=== PATIENT | male | born 1985 | race Caucasian/White ===

== ENCOUNTER 2017-11-30 14:22 | Emergency (ER) | payer BC ==
[2017-11-30] MEDS ORDERED: Sodium Chloride 0.9% 10 ML Syringe FLUSH PRN (17:00)
[2017-11-30] MEDS ORDERED: Sodium Chloride 0.9% 1,000 ML IV ONE (17:01)
[2017-11-30] MEDS ORDERED: Acetaminophen 325 MG Tab PO ONE (17:02)
[2017-11-30 17:43] LABS: CHLORIDE,CL 95 mmol/L (101-111); SODIUM,NA 131 mmol/L (135-145)
--- NOTE | 2017-12-01 08:01 | EDM.PDOC ---
Scribed by Jojo Banda 11/30/17 [id number] for Marisa Polo NP ED HPI GENERAL MEDICAL PROBLEM - General Chief Complaint: Fever Stated Complaint: [id number] FLU Time Seen by Provider: 11/30/17 16:55 Source of Information: Reports: Patient, RN, RN Notes Reviewed History Limitations: Reports: No Limitations - History of Present Illness INITIAL COMMENTS - FREE TEXT/NARRATIVE: Patient presents to ER with complaint of fever, chills and decreased appetite for the past week. Patient admits to pain to neck, head and spine. Increased sleepiness. States temperature ranges from 102.5 to 104. He takes Advil for headache and fever which helps. He has had mosquito bites. He has had no rash, nausea, vomiting, diarrhea, tick bites, cough or runny nose. Onset: Gradual Duration: Getting Worse Location: Reports: Generalized Quality: Reports: Ache Severity: Moderate Improves with: Reports: None Worsens with: Reports: None Associated Symptoms: Reports: No Other Symptoms Generalized Pain Score (Numeric/FACES): 4 - Related Data Allergies Allergy/AdvReac Type Severity Reaction Status Date / Time minocycline Allergy Cannot Verified 11/30/17 16:27 Remember Penicillins Allergy Cannot Verified 11/30/17 16:27 Remember Home Meds: Home Meds . [No Known Home Meds] 11/30/17 [History] Past Medical History - Past Health History Medical/Surgical History: Denies Medical/Surgical History Social & Family History - Tobacco Use Smoking Status *Q: Never Smoker - Alcohol Use Days Per Week of Alcohol Use: 3 Number of Drinks Per Day: 10 Total Drinks Per Week: 30 - Recreational Drug Use Recreational Drug Use: No ED ROS ENT - Review of Systems Review Of Systems: ROS reveals no pertinent complaints other than HPI. ED EXAM, ENT - Physical Exam Exam: See Below Exam Limited By: No Limitations General Appearance: Alert, WD/WN, No Apparent Distress Eye Exam: Bilateral Eye: Normal Inspection Ears: Normal External Exam, Normal Canal, Hearing Grossly Normal, Normal TMs Nose: Normal Inspection, Normal Mucousa, No Blood Mouth/Throat: Normal Inspection, Normal Gums, Normal Lips, Normal Oropharynx, Normal Teeth Head: Atraumatic, Normocephalic Neck: Other (no nuchal rigidity) Respiratory/Chest: No Respiratory Distress, Lungs Clear, Normal Breath Sounds, No Accessory Muscle Use, Chest Non-Tender Cardiovascular: Normal Peripheral Pulses, Regular Rate, Rhythm, No Edema, No Gallop, No JVD, No Murmur, No Rub GI/Abdominal: Normal Bowel Sounds, Soft, Non-Tender, No Organomegaly, No Distention, No Abnormal Bruit, No Mass (Male) Exam: Deferred Rectal (Males) Exam: Deferred Back: Normal Inspection, Full Range of Motion Extremities: Normal Inspection, Normal Range of Motion, Non-Tender, No Pedal Edema, Normal Capillary Refill Neurological: Alert, Oriented, CN II-XII Intact, Normal Cognition, Normal Gait, Normal Reflexes, No Motor/Sensory Deficits Psychiatric: Normal Affect, Normal Mood Skin: Warm, Dry, Intact, Normal Color, No Rash Lymphatic: Other (+2 anterior cervical) Course - Vital Signs Last Recorded V/S: Last Vital Signs Temp 100.6 F 11/30/17 18:00 Pulse 76 11/30/17 18:00 Resp 16 11/30/17 18:00 BP 127/70 11/30/17 18:00 Pulse Ox 98 11/30/17 18:00 - Orders/Labs/Meds Orders: Active Orders 24 hr Category Date Time Status Peripheral IV Care [RC] . DIRECTED Care 11/30/17 17:01 Active CULTURE BLOOD [BC] Stat Lab 11/30/17 17:14 Received CULTURE BLOOD [BC] Stat Lab 11/30/17 17:18 Received CULTURE STREP A CONFIRMATION [RM] Stat Lab 11/30/17 16:24 Results LYME, TOTAL AB TEST/REFLEX [REF] Urgent Lab 11/30/17 17:14 Received STREP SCRN A RAPID W CULT CONF [RM] Stat Lab 11/30/17 16:24 Results UA W/MICROSCOPIC [URIN] Stat Lab 11/30/17 17:00 Ordered WEST NILE VIRUS IGM [REF] Stat Lab 11/30/17 17:14 Received Sodium Chloride 0.9% [Saline Flush] Med 11/30/17 17:00 Active 10 ml FLUSH ASDIRECTED PRN Blood Culture x2 Reflex Set [OM.PC] Stat Oth 11/30/17 17:00 Ordered Peripheral IV Insertion Adult [OM.PC] Stat Oth 11/30/17 17:00 Ordered Medication Orders Sodium Chloride (Saline Flush) 10 ml FLUSH ASDIRECTED PRN PRN Reason: Keep Vein Open Last Admin: 11/30/17 17:10 Dose: 10 ml Labs: Laboratory Tests 11/30/17 11/30/17 11/30/17 Range/Units 17:00 17:14 17:14 WBC 9.6 (5.0-10.0) 10^3/uL RBC 4.65 (4.6-6.2) 10^6/uL Hgb 14.4 (14.0-18.0) g/dL Hct 42.8 (40.0-54.0) % MCV 92.0 (80-100) fL MCH 31.0 (27.0-34.0) pg MCHC 33.6 (33.0-35.0) g/dL Plt Count 239 (150-450) 10^3/uL Neut % (Auto) 66.9 (42.2-75.2) % Lymph % (Auto) 17.6 L (20.5-50.1) % Coles % (Auto) 13.8 H (2-8) % Eos % (Auto) 1.4 (1.0-3.0) % Baso % (Auto) 0.3 (0.0-1.0) % Sodium 131 L (135-145) mmol/L Potassium 3.8 (3.6-5.0) mmol/L Chloride 95 L (101-111) mmol/L Carbon Dioxide 24.0 (21.0-31.0) mmol/L Anion Gap 15.8 BUN 10 (7-18) mg/dL Creatinine 1.2 (0.6-1.3) mg/dL Est Cr Clr Drug Dosing 98.80 mL/min Estimated GFR (MDRD) > 60 BUN/Creatinine Ratio 8.33 Glucose 101 (74-105) mg/dL Lactic Acid (0.5-2.2) mmol/L Calcium 9.3 (8.4-10.2) mg/dl Total Bilirubin 1.0 (0.2-1.0) mg/dL AST 64 H (10-42) IU/L ALT 41 (10-60) IU/L Alkaline Phosphatase 92 (42-121) IU/L Total Protein 8.8 H (6.7-8.2) g/dl Albumin 4.6 (3.2-5.5) g/dl Globulin 4.2 Albumin/Globulin Ratio 1.10 Urine Color Yellow (YELLOW) Urine Appearance Clear (CLEAR) Urine pH 7.5 (5.0-9.0) Ur Specific Jefferson 1.015 (1.005-1.030) Urine Protein 100 H (NEGATIVE) Urine Glucose (UA) Negative (NEGATIVE) Urine Ketones Negative (NEGATIVE) Urine Occult Blood Negative (NEGATIVE) Urine Nitrite Negative (NEGATIVE) Urine Bilirubin Negative (NEGATIVE) Urine Urobilinogen >=8.0 H (0.2-1.0) mg/dL Ur Leukocyte Esterase Negative (NEGATIVE) Urine RBC 0-5 /HPF Urine WBC 0-5 (0-5/HPF) /HPF Ur Epithelial Cells Rare /HPF Urine Bacteria Rare (0-FEW/HPF) /HPF 11/30/17 Range/Units 17:14 WBC (5.0-10.0) 10^3/uL RBC (4.6-6.2) 10^6/uL Hgb (14.0-18.0) g/dL Hct (40.0-54.0) % MCV (80-100) fL MCH (27.0-34.0) pg MCHC (33.0-35.0) g/dL Plt Count (150-450) 10^3/uL Neut % (Auto) (42.2-75.2) % Lymph % (Auto) (20.5-50.1) % Coles % (Auto) (2-8) % Eos % (Auto) (1.0-3.0) % Baso % (Auto) (0.0-1.0) % Sodium (135-145) mmol/L Potassium (3.6-5.0) mmol/L Chloride (101-111) mmol/L Carbon Dioxide (21.0-31.0) mmol/L Anion Gap BUN (7-18) mg/dL Creatinine (0.6-1.3) mg/dL Est Cr Clr Drug Dosing mL/min Estimated GFR (MDRD) BUN/Creatinine Ratio Glucose (74-105) mg/dL Lactic Acid 0.9 (0.5-2.2) mmol/L Calcium (8.4-10.2) mg/dl Total Bilirubin (0.2-1.0) mg/dL AST (10-42) IU/L ALT (10-60) IU/L Alkaline Phosphatase (42-121) IU/L Total Protein (6.7-8.2) g/dl Albumin (3.2-5.5) g/dl Globulin Albumin/Globulin Ratio Urine Color (YELLOW) Urine Appearance (CLEAR) Urine pH (5.0-9.0) Ur Specific Jefferson (1.005-1.030) Urine Protein (NEGATIVE) Urine Glucose (UA) (NEGATIVE) Urine Ketones (NEGATIVE) Urine Occult Blood (NEGATIVE) Urine Nitrite (NEGATIVE) Urine Bilirubin (NEGATIVE) Urine Urobilinogen (0.2-1.0) mg/dL Ur Leukocyte Esterase (NEGATIVE) Urine RBC /HPF Urine WBC (0-5/HPF) /HPF Ur Epithelial Cells /HPF Urine Bacteria (0-FEW/HPF) /HPF Rapid strep: negative. Influenza A: Negative. Influenza B: Negative. Meds: Medications Generic Name Dose Route Start Last Admin Trade Name Freq PRN Reason Stop Dose Admin Sodium Chloride 10 ml 11/30/17 17:00 11/30/17 17:10 Saline Flush FLUSH 10 ml ASDIRECTED PRN Administration Keep Vein Open Discontinued Medications Generic Name Dose Route Start Last Admin Trade Name Freq PRN Reason Stop Dose Admin Acetaminophen 650 mg 11/30/17 17:02 11/30/17 17:10 Tylenol PO 11/30/17 17:03 650 mg NOW ONE Administration Sodium Chloride 1,000 mls @ 999 mls/hr 11/30/17 17:01 11/30/17 17:10 Normal Saline IV 11/30/17 18:01 999 mls/hr .BOLUS ONE Administration Departure - Departure Time of Disposition: 18:37 Disposition: Home, Self-Care 01 Condition: Fair Clinical Impression: Viral illness Fever Qualifiers: Fever type: unspecified Qualified Code(s): R50.9 - Fever, unspecified - Discharge Information Instructions: Viral Illness, Adult, Fever, Adult, [id number], West Nile Virus Forms: ED Department Discharge Additional Instructions: Continue to use Tylenol and/or ibuprofen as directed for fever/pain Drink plenty of fluids Stay home and rest until fever free for 24 hours Follow up with your primary care facility next week - My Orders Last 24 Hours: My Active Orders 11/30/17 16:24 CULTURE STREP A CONFIRMATION [RM] Stat STREP SCRN A RAPID W CULT CONF [RM] Stat 11/30/17 17:00 UA W/MICROSCOPIC [URIN] Stat Sodium Chloride 0.9% [Saline Flush] 10 ml FLUSH ASDIRECTED PRN Blood Culture x2 Reflex Set [OM.PC] Stat Peripheral IV Insertion Adult [OM.PC] Stat 11/30/17 17:01 Peripheral IV Care [RC] . DIRECTED 11/30/17 17:14 CULTURE BLOOD [BC] Stat LYME, TOTAL AB TEST/REFLEX [REF] Urgent WEST NILE VIRUS IGM [REF] Stat 11/30/17 17:18 CULTURE BLOOD [BC] Stat - Assessment/Plan Last 24 Hours: My Active Orders 11/30/17 16:24 CULTURE STREP A CONFIRMATION [RM] Stat STREP SCRN A RAPID W CULT CONF [RM] Stat 11/30/17 17:00 UA W/MICROSCOPIC [URIN] Stat Sodium Chloride 0.9% [Saline Flush] 10 ml FLUSH ASDIRECTED PRN Blood Culture x2 Reflex Set [OM.PC] Stat Peripheral IV Insertion Adult [OM.PC] Stat 11/30/17 17:01 Peripheral IV Care [RC] . DIRECTED 11/30/17 17:14 CULTURE BLOOD [BC] Stat LYME, TOTAL AB TEST/REFLEX [REF] Urgent WEST NILE VIRUS IGM [REF] Stat 11/30/17 17:18 CULTURE BLOOD [BC] Stat I have read and agree with the documentation that has been completed regarding this visit. By signing this record, I attest that the documentation was completed in my physical presence and is an accurate record of the encounter.
== END 2017-11-30 18:51 | disposition home or self-care (01) ==
LOC: DL.ED 14:22
DX: B34.9 Viral infection, unspecified (principal); Z88.1 Allergy status to other antibiotic agents; Z88.0 Allergy status to penicillin
CPT/HCPCS: 36415; 80053; 81001; 83605; 85025; 86618; 86788; 87040; 87081; 87430; 87804; 96360; 99284; A9270; J7030; J7050

== ENCOUNTER 2021-05-25 14:44 | Inpatient (IN) | payer BC ==
[2021-05-25] MEDS ORDERED: Iopamidol 755 Mg/ML 100 ML Bottle IVPUSH ONE (15:18)
--- NOTE | 2021-05-25 15:22 | EDM.PDOC ---
ED HPI GENERAL MEDICAL PROBLEM - General Chief Complaint: General Stated Complaint: SENT FROM DR WEBER Time Seen by Provider: 05/25/21 15:20 Source of Information: Reports: Patient, Provider (MAGO Vences from [facility]), RN, RN Notes Reviewed History Limitations: Reports: No Limitations - History of Present Illness INITIAL COMMENTS - FREE TEXT/NARRATIVE: Christian is a 35 y/o male who presents to the ED via personal vehicle at the request of his PCP from [facility] for persistent chest pain and shortness of breath. Per his provider, the patient has a COVID-19 infection three weeks ago. He was evaluated in clinic two days ago for persistent upper respiratory symptoms and was subsequently started on Omnicef for a suspected sinus infection. He presented again to the clinic today for shortness of breath and chest pain; while his CXR was found to have multifocal infiltrates his d-dimer was noted to be 3600. His PCP has requested we obtain a CT chest for r/o PE. Right Middle Back Pain Score (Numeric/FACES): 2 - Related Data Allergies Allergy/AdvReac Type Severity Reaction Status Date / Time minocycline Allergy Cannot Verified 11/30/17 16:27 Remember Penicillins Allergy Cannot Verified 11/30/17 16:27 Remember Home Meds: Home Meds Mv-Min/Vit C/Glut/Lysine/Hc124 [Airborne Tablet Chewable] 1 each PO DAILY 05/25/21 [History] Apixaban [Eliquis] 10 mg PO BID #60 tablet 05/27/21 [Rx] Past Medical History - Past Health History Medical/Surgical History: Denies Medical/Surgical History ED ROS GENERAL - Review of Systems Review Of Systems: Comprehensive ROS is negative, except as noted in HPI. ED EXAM, GENERAL - Physical Exam Exam: See Below Exam Limited By: No Limitations General Appearance: Alert, No Apparent Distress Eye Exam: Bilateral Eye: EOMI, Normal Inspection, PERRL (3mm) Ears: Normal External Exam, Normal Canal, Hearing Grossly Normal, Normal TMs Nose: Normal Inspection, Normal Mucosa, No Blood Throat/Mouth: Normal Inspection, Normal Oropharynx, Normal Voice, No Airway Compromise Head: Atraumatic, Normocephalic Neck: Normal Inspection, Supple, Non-Tender, Full Range of Motion. No: Lymphadenopathy (L), Lymphadenopathy (R) Respiratory/Chest: No: Chest Non-Tender (To right lateral ribs with i nspiration), Crackles, Rales, Rhonchi, Wheezing, Stridor, Pleural Rub Cardiovascular: Normal Peripheral Pulses, Regular Rate, Rhythm, No Edema, No Gallop, No JVD, No Murmur, No Rub Peripheral Pulses: 2+: Radial (L), Radial (R) GI/Abdominal: Normal Bowel Sounds, Soft, Non-Tender, No Distention, No Abnormal Bruit, No Mass, Pelvis Stable (Male) Exam: Deferred Rectal (Males) Exam: Deferred Back Exam: Normal Inspection, Full Range of Motion Extremities: Normal Inspection, Normal Range of Motion, Normal Capillary Refill Neurological: Alert, Oriented, CN II-XII Intact, Normal Cognition, Normal Gait, No Motor/Sensory Deficits Psychiatric: Normal Affect, Normal Mood Skin Exam: Warm, Dry, Intact, Normal Color, No Rash. No: Cyanosis, Jaundice, Mottled, Pallor Course - Vital Signs Last Recorded V/S: Last Vital Signs Temp 97.8 F 05/27/21 08:14 Pulse 86 05/27/21 08:14 Resp 20 05/27/21 08:14 BP 111/61 05/27/21 08:14 Pulse Ox 95 05/27/21 08:14 - Orders/Labs/Meds Meds: Medications Discontinued Medications Generic Name Dose Route Start Last Admin Trade Name Audiq PRN Reason Stop Dose Admin Acetaminophen 650 mg 05/25/21 17:23 Acetaminophen 325 Mg Tab PO Q4H PRN Pain (Mild 1-3)/fever Apixaban 10 mg 05/26/21 09:30 05/27/21 09:16 Apixaban 5 Mg Tab PO 10 mg BID JEAN-PIERRE Administration Heparin Sodium (Porcine) 5,000 units 05/25/21 17:17 05/25/21 17:48 Heparin Sodium 5,000 Units/Ml Vial IVPUSH 05/25/21 17:18 5,000 units ONETIME ONE Administration Heparin Sodium (Porcine) 2,500 units 05/26/21 00:12 05/26/21 00:28 Heparin Sodium 5,000 Units/Ml Vial IVPUSH 05/26/21 00:13 2,500 units .BOLUS ONE Administration Heparin Sodium/Sodium Chloride 25,000 units in 500 mls @ 26 mls/hr 05/25/21 17:30 05/26/21 00:30 Heparin 25,000 Units In 1/2 Ns 500 Ml IV 1,685 units/hr TITRATE JEAN-PIERRE 33.7 mls/hr Titration Protocol 1,300 UNITS/HR Iopamidol 100 ml 05/25/21 15:18 05/25/21 15:29 Iopamidol 755 Mg/Ml 100 Ml Bottle IVPUSH 05/25/21 15:19 80 ml ONETIME ONE Administration Levofloxacin 500 mg 05/25/21 17:30 05/26/21 17:25 Levofloxacin 500 Mg Tab PO 500 mg Q24H JEAN-PIERRE Administration Morphine Sulfate 2 mg 05/25/21 17:23 Morphine 2 Mg/Ml Syringe IVPUSH Q2H PRN Pain (severe 7-10) Non-Formulary Medication 1 each 05/26/21 09:00 Mv-Min/Vit C/Glut/Lysine/Hc124 [Airborne Tablet Chewable] PO DAILY JEAN-PIERRE Ondansetron HCl 4 mg 05/25/21 17:23 Ondansetron 4 Mg/2 Ml Sdv IVPUSH Q4H PRN Nausea/Vomiting Ondansetron HCl 4 mg 05/25/21 17:23 Ondansetron 4 Mg Tab.Dis PO Q4H PRN nausea, able to take PO Oxycodone HCl 5 mg 05/25/21 17:23 Oxycodone 5 Mg Tab PO Q4H PRN Pain (moderate 4-6) Sodium Chloride 10 ml 05/25/21 21:04 05/26/21 21:53 Sodium Chloride 0.9% 10 Ml Syringe FLUSH 10 ml ASDIRECTED PRN Administration Keep Vein Open Temazepam 15 mg 05/25/21 17:23 05/26/21 23:33 Temazepam 15 Mg Cap PO 15 mg BEDTIME PRN Administration Sleep - Radiology Interpretation Free Text/Narrative:: [facility] Final Radiology Report Call: [phone] assistance Online chat: [email or web address] Name: CHRISTIAN PINEDO Age: 35Years M Date: 05/25/2021 SSN: -- : [id number] Study: CT CHEST W CONT Requesting Physician: Xi Gilmore Images: [id number] Addl Studies: Provided Clinical History: r/o pulmonary embolism; D-dimer 3600 Contrast: With Contrast Medium: isovue 370 Contrast Amount: 80 mL Contrast Method: Intravenous (IV) Page 1 of 2 PROCEDURE INFORMATION: Exam: CT Chest With Contrast; Diagnostic Exam date and time: 05/25/2021 3:21 PM Age: 35 years old Clinical indication: Shortness of breath; Additional info: R/O pulmonary embolism; D-dimer 3600 TECHNIQUE: Imaging protocol: Diagnostic computed tomography of the chest with contrast. Radiation optimization: All CT scans at this facility use at least one of these dose optimization techniques: automated exposure control; mA and/or kV adjustment per patient size (includes targeted exams where dose is matched to clinical indication); or iterative reconstruction. Contrast material: ISOVUE 370; Contrast volume: 80 ml; Contrast route: INTRAVENOUS (IV); COMPARISON: No relevant prior studies available. FINDINGS: Lungs: Bilateral airspace disease, suspicious for pneumonia. There are multifocal areas of the mostly dense, consolidative airspace disease seen, involving all 5 lobes, with an overall upper lung predominance. Many of these are peripherally located and some have round configurations These are commonly reported imaging features of COVID-19 pneumonia. Pleural spaces: No pneumothorax or pleural effusions. Heart: The RV/LV ratio is abnormally elevated, suggestive of right heart strain. No significant pericardial effusion. Pulmonary arteries: Filling defects within the right lower lobe pulmonary artery, extending into multiple segmental and subsegmental branches, compatible with pulmonary emboli. No evidence of clot in the large/central pulmonary arteries. Aorta: No acute abnormality. No evidence of aortic dissection. Lymph nodes: Multiple small lymph nodes in the mediastinum and hilar regions bilaterally, none appearing pathologically enlarged. These are most likely reactive, and not of clinical significance. No evidence of diffuse pathologic lymphadenopathy. Bones/joints: No acute bony abnormality. Soft tissues: No acute abnormality. IMPRESSION: 1. Pulmonary emboli involving the right lower lobe pulmonary artery. 2. Findings suggestive of associated right heart strain. 3. Bilateral airspace disease, suspicious for pneumonia. Commonly reported imaging features of COVID-19 pneumonia are present. Other processes such as influenza pneumonia and organizing pneumonia, can cause a similar imaging pattern. (Reference: Genaro) 4. See above for remaining findings. REFERENCES: Genaro Gilliland, et al., Radiological Society of [place] Expert Consensus Statement on Reporting Chest CT Findings Related to COVID-19. Endorsed by the Society of Thoracic Radiology, the [place] [employer], and RSNA. Published September 02, 2019. Thank you for allowing us to participate in the care of your patient. Dictated and Authenticated by: Shani Cruz MD 05/25/2021 3:52 PM Central Time ([place] & [place]) - Re-Assessments/Exams Free Text/Narrative Re-Assessment/Exam: 05/25/21 CT chest w/ obtained to r/o PE Labs from [facility] reviewed by advertising writer. Case discussed with Dr. Peralta who kindly accepted patient for admission to this facility. Findings of examination, lab work, and imaging reviewed with patient. Will start heparin bolus and gtt. Patient verbalized understanding and agreement with the plan of care. Departure - Departure Time of Disposition: 16:15 Disposition: Admitted As Inpatient 68 Clinical Impression: Pulmonary embolism Qualifiers: Pulmonary embolism type: single subsegmental (without acute cor pulmonale) Qualified Code(s): I26.93 - Single subsegmental pulmonary embolism without acute cor pulmonale - Discharge Information
--- NOTE | 2021-05-25 15:52 | CT ---
PROCEDURE INFORMATION: Exam: CT Chest With Contrast; Diagnostic Exam date and time: 05/25/2021 3:21 PM Age: 35 years old Clinical indication: Shortness of breath; Additional info: R/O pulmonary embolism; D-dimer 3600 TECHNIQUE: Imaging protocol: Diagnostic computed tomography of the chest with contrast. Radiation optimization: All CT scans at this facility use at least one of these dose optimization techniques: automated exposure control; mA and/or kV adjustment per patient size (includes targeted exams where dose is matched to clinical indication); or iterative reconstruction. Contrast material: ISOVUE 370; Contrast volume: 80 ml; Contrast route: INTRAVENOUS (IV); COMPARISON: No relevant prior studies available. FINDINGS: Lungs: Bilateral airspace disease, suspicious for pneumonia. There are multifocal areas of the mostly dense, consolidative airspace disease seen, involving all 5 lobes, with an overall upper lung predominance. Many of these are peripherally located and some have round configurations These are commonly reported imaging features of COVID-19 pneumonia. Pleural spaces: No pneumothorax or pleural effusions. Heart: The RV/LV ratio is abnormally elevated, suggestive of right heart strain. No significant pericardial effusion. Pulmonary arteries: Filling defects within the right lower lobe pulmonary artery, extending into multiple segmental and subsegmental branches, compatible with pulmonary emboli. No evidence of clot in the large/central pulmonary arteries. Aorta: No acute abnormality. No evidence of aortic dissection. Lymph nodes: Multiple small lymph nodes in the mediastinum and hilar regions bilaterally, none appearing pathologically enlarged. These are most likely reactive, and not of clinical significance. No evidence of diffuse pathologic lymphadenopathy. Bones/joints: No acute bony abnormality. Soft tissues: No acute abnormality. IMPRESSION: 1. Pulmonary emboli involving the right lower lobe pulmonary artery. 2. Findings suggestive of associated right heart strain. 3. Bilateral airspace disease, suspicious for pneumonia. Commonly reported imaging features of COVID-19 pneumonia are present. Other processes such as influenza pneumonia and organizing pneumonia, can cause a similar imaging pattern. (Reference: Genaro) 4. See above for remaining findings. REFERENCES: Genaro Gilliland et al., Radiological Society of [place] Expert Consensus Statement on Reporting Chest CT Findings Related to COVID-19. Endorsed by the Society of Thoracic Radiology, the [place] [employer], and RSNA. Published September 02, 2019.
[2021-05-25] MEDS ORDERED: Heparin Sodium 5,000 Units/ML Vial IVPUSH ONE (17:17)
[2021-05-25] MEDS ORDERED: Ondansetron 4 MG/2 ML SDV IVPUSH PRN (17:23)
[2021-05-25] MEDS ORDERED: Morphine 2 MG/ML SYRINGE IVPUSH PRN (17:23)
[2021-05-25] MEDS ORDERED: Acetaminophen 325 MG Tab PO PRN (17:23)
[2021-05-25] MEDS ORDERED: oxyCODONE 5 MG Tab PO PRN (17:23)
[2021-05-25] MEDS ORDERED: Ondansetron 4 MG Tab.DIS PO PRN (17:23)
[2021-05-25] MEDS ORDERED: Heparin Sodium/0.45% NaCl 25,000 UNITS/500 ML BAG IV SCH (17:30)
[2021-05-25 17:31] LABS: PTT,PARTIAL THROMBOPLSTIN TIME 22.1 SEC (22.0-34.0)
--- NOTE | 2021-05-25 17:31 | PCM.HP ---
H&P History of Present Illness - General Date of Service: 05/25/21 Admit Problem/Dx: Admission Diagnosis/Problem Admission Diagnosis/Problem Pulmonary embolism Source of Information: Patient, Provider (ER) - History of Present Illness Initial Comments - Free Text/Narative: 35 yo with no chronic medical problems no family h/o blood clots not vaccinated against covid 19 had covid 19 pneumonia about 3 weeks prior to presentation with symptoms of cough, fever, loss of taste symptoms improved after 8 days non specific treatment was provided later was c/o stuffy nose and treated for URTI, sinusitis with cefdir noted significant sob with walking up stairs am 05/25 developed r. sided sharp chest pain, severe, worse with deep breath no associated leg swelling continued sob with activcity in clinic noted elevated ddimer sent to er in er CT showed typical covid pneumonia changes in lung parenchyma and PE in r. lower lobe artery - Related Data Allergies/Adverse Reactions: Allergies Allergy/AdvReac Type Severity Reaction Status Date / Time minocycline Allergy Cannot Verified 11/30/17 16:27 Remember Penicillins Allergy Cannot Verified 11/30/17 16:27 Remember Home Medications: Home Meds Cefdinir [Omnicef] 300 mg PO BID 05/25/21 [History] Mv-Min/Vit C/Glut/Lysine/Hc124 [Airborne Tablet Chewable] 1 each PO DAILY 05/25/21 [History] Past Medical History - Past Health History Medical/Surgical History: Denies Medical/Surgical History Cardiovascular History: Reports: Blood Clots/VTE/DVT Respiratory History: Reports: PE Other Respiratory History: new pt and double pneumonia - Infectious Disease History Infectious Disease History: Reports: Novel Coronavirus - Past Surgical History Cardiovascular Surgical History: Reports: None Respiratory Surgical History: Reports: None Social & Family History - Tobacco Use Tobacco Use Status *Q: Never Tobacco User - Caffeine Use Caffeine Use: Reports: None - Recreational Drug Use Recreational Drug Use: No H&P Review of Systems - Review of Systems: Review Of Systems: See Below General: Denies: Fever, Chills Pulmonary: Reports: Shortness of Breath, Cough. Denies: Hemoptysis Cardiovascular: Denies: Edema Gastrointestinal: Denies: Abdominal Pain Genitourinary: Denies: Dysuria Neurological: Denies: Confusion Exam - Exam Exam: See Below - Vital Signs Vital Signs: Last Vital Signs Temp 98.3 F 05/25/21 16:36 Pulse 75 05/25/21 16:36 Resp 20 05/25/21 16:36 BP 145/80 H 05/25/21 16:36 Pulse Ox 97 05/25/21 16:36 Weight: 215 lb - Exam Quality Assessment: Supplemental Oxygen General: Alert, Oriented Neck: Supple Lungs: Clear to Auscultation, Normal Respiratory Effort Cardiovascular: Regular Rate, Regular Rhythm GI/Abdominal Exam: Normal Bowel Sounds, Soft, Non-Tender Extremities: No Pedal Edema Skin: Warm, Dry Neuro Extensive - Mental Status: Alert, Oriented x3, Normal Mood/Affect Psychiatric: Alert, Normal Affect, Normal Mood - Patient Data Lab Results Last 24 hrs: Laboratory Results - last 24 hr 05/25/21 Range/Units 16:16 WBC 7.3 (5.0-10.0) 10^3/uL RBC 4.70 (4.6-6.2) 10^6/uL Hgb 14.5 (14.0-18.0) g/dL Hct 44.5 (40.0-54.0) % MCV 94.7 (80-100) fL MCH 30.9 (27.0-34.0) pg MCHC 32.6 L (33.0-35.0) g/dL Plt Count 414 D (150-450) 10^3/uL Neut % (Auto) 66.9 (42.2-75.2) % Lymph % (Auto) 20.7 (20.5-50.1) % [place] % (Auto) 10.6 H (2-8) % Eos % (Auto) 1.2 (1.0-3.0) % Baso % (Auto) 0.6 (0.0-1.0) % Add Manual Diff Yes Result Diagrams: 05/25/21 16:16 Imaging Impressions Last 24 hrs: ct showed b/l covid type pneumonia changes and r. LLobe PE *Q Meaningful Use (ADM) - VTE *Q VTE Anticoagulation Contraindications: Alternative [place] Request PT - Problem List (1) Pneumonia due to COVID-19 virus SNOMED Code(s): 076607790215014400 ICD Code: U07.1 - COVID-19; J12.82 - PNEUMONIA DUE TO CORONAVIRUS DISEASE Status: Acute Current Visit: Yes (2) Pulmonary embolism SNOMED Code(s): 95741794 ICD Code: I26.99 - OTHER PULMONARY EMBOLISM WITHOUT ACUTE COR PULMONALE Status: Acute Current Visit: Yes (3) Pulmonary embolism associated with COVID-19 SNOMED Code(s): 976762541 ICD Code: U07.1 - COVID-19; I26.99 - OTHER PULMONARY EMBOLISM WITHOUT ACUTE COR PULMONALE Status: Acute Current Visit: Yes Problem List Initiated/Reviewed/Updated: Yes Orders Last 24hrs: Active Orders 24 hr Category Date Time Status Admission Diagnosis [ADT] Stat ADT 05/25/21 16:16 Ordered Admission Status [Patient Status] [ADT] Routine ADT 05/25/21 16:16 Active Oxygen Therapy [RC] PRN Care 05/25/21 17:23 Ordered Peripheral IV Care [RC] . DIRECTED Care 05/25/21 17:25 Ordered Up With Assistance [RC] ASDIRECTED Care 05/25/21 17:23 Ordered VTE/DVT Education [RC] PER UNIT ROUTINE Care 05/25/21 17:23 Ordered Vital Signs [RC] Q4H Care 05/25/21 17:23 Ordered Regular Diet [DIET] Diet 05/25/21 Breakfast Ordered Venous Doppler Lwr Ext Bi [US] Routine Exams 05/25/21 17:26 Ordered BASIC METABOLIC PANEL,BMP [CHEM] AM Lab 05/26/21 05:15 Ordered CBC WITH AUTO DIFF [HEME] AM Lab 05/26/21 05:15 Ordered CBC WITH AUTO DIFF [HEME] Stat Lab 05/25/21 16:16 Results INR,PT,PROTHROMBIN TIME [COAG] AM Lab 05/26/21 05:15 Ordered INR,PT,PROTHROMBIN TIME [COAG] Stat Lab 05/25/21 16:11 Ordered MAGNESIUM [CHEM] AM Lab 05/26/21 05:11 Ordered MANUAL DIFFERENTIAL QA/NC [HEME] Stat Lab 05/25/21 16:16 Results PHOSPHORUS [CHEM] AM Lab 05/26/21 05:11 Ordered PTT,PARTIAL THROMBOPLSTIN TIME [COAG] Q6H Lab 05/25/21 17:30 Ordered PTT,PARTIAL THROMBOPLSTIN TIME [COAG] Q6H Lab 05/25/21 23:30 Ordered PTT,PARTIAL THROMBOPLSTIN TIME [COAG] Q6H Lab 05/26/21 05:30 Ordered PTT,PARTIAL THROMBOPLSTIN TIME [COAG] Q6H Lab 05/26/21 11:30 Ordered PTT,PARTIAL THROMBOPLSTIN TIME [COAG] Q6H Lab 05/26/21 17:30 Ordered PTT,PARTIAL THROMBOPLSTIN TIME [COAG] Q6H Lab 05/26/21 23:30 Ordered PTT,PARTIAL THROMBOPLSTIN TIME [COAG] Stat Lab 05/25/21 16:11 Ordered Acetaminophen [TylenoL] Med 05/25/21 17:23 Ordered 650 mg PO Q4H PRN Heparin Sodium Med 05/25/21 17:17 Once 5,000 units IVPUSH .BOLUS ONE Heparin Sodium/0.45% NaCl [Heparin 25,000 Units in 1/2 Med 05/25/21 17:30 Ordered NS 500 ML] 25,000 units in 500 ml IV TITRATE Morphine Med 05/25/21 17:23 Ordered 2 mg IVPUSH Q2H PRN Mv-Min/Vit C/Glut/Lysine/Hc124 [Airborne Tablet Med 05/26/21 09:00 Ordered Chewable] 1 each PO DAILY Ondansetron [Zofran ODT] Med 05/25/21 17:23 Ordered 4 mg PO Q4H PRN Ondansetron [Zofran] Med 05/25/21 17:23 Ordered 4 mg IVPUSH Q4H PRN Sodium Chloride 0.9% [Saline Flush] Med 05/25/21 21:00 Ordered 10 ml FLUSH 0900,2100 Temazepam [Restoril] Med 05/25/21 17:23 Ordered 15 mg PO BEDTIME PRN levoFLOXacin [Levaquin] Med 05/25/21 17:30 Ordered 500 mg PO Q24H oxyCODONE Med 05/25/21 17:23 Ordered 5 mg PO Q4H PRN Anticoagulation Contraindications VTE [AST] Per Unit Oth 05/25/21 17:23 Ordered Routine Peripheral IV Insertion Adult [OM.PC] Routine Oth 05/25/21 17:23 Ordered Saline Lock Insert [OM.PC] Routine Oth 05/25/21 17:23 Ordered Resuscitation Status Routine Resus Stat 05/25/21 17:23 Ordered Medication Orders Acetaminophen (Acetaminophen 325 Mg Tab) 650 mg PO Q4H PRN PRN Reason: Pain (Mild 1-3)/fever Heparin Sodium (Porcine) (Heparin Sodium 5,000 Units/Ml Vial) 5,000 units IVPUSH .BOLUS ONE Stop: 05/25/21 17:18 Heparin Sodium/Sodium Chloride (Heparin 25,000 Units In 1/2 Ns 500 Ml) 25,000 units in 500 mls @ 26 mls/hr IV TITRATE JEAN-PIERRE; Protocol Levofloxacin (Levofloxacin 500 Mg Tab) 500 mg PO Q24H JEAN-PIERRE Morphine Sulfate (Morphine 2 Mg/Ml Syringe) 2 mg IVPUSH Q2H PRN PRN Reason: Pain (severe 7-10) Non-Formulary Medication (Mv-Min/Vit C/Glut/Lysine/Hc124 [Airborne Tablet Chewable]) 1 each PO DAILY JEAN-PIERRE Ondansetron HCl (Ondansetron 4 Mg/2 Ml Sdv) 4 mg IVPUSH Q4H PRN PRN Reason: Nausea/Vomiting Ondansetron HCl (Ondansetron 4 Mg Tab.Dis) 4 mg PO Q4H PRN PRN Reason: nausea, able to take PO Oxycodone HCl (Oxycodone 5 Mg Tab) 5 mg PO Q4H PRN PRN Reason: Pain (moderate 4-6) Sodium Chloride (Sodium Chloride 0.9% 10 Ml Syringe) 10 ml FLUSH 0900,2100 JEAN-PIERRE Temazepam (Temazepam 15 Mg Cap) 15 mg PO BEDTIME PRN PRN Reason: Sleep Assessment/Plan Comment:: 35 yo presented with persistent sob and new onset on r. sided chast pain 3 weeks following covid 19 pneumonia covid 19 pneumonia off isolation significant lung parenchyma changes will give dexamethasone follow for hypoxemic respiratory failure supplement oxygen as needed acute PE as complication of covid 19 infection start wght based heparin nomogram will transition to apixaban if stable in am
[2021-05-25] MEDS: Levofloxacin 500 MG Tab PO SCH (17:47)
--- NOTE | 2021-05-25 20:06 | US ---
PROCEDURE INFORMATION: Exam: US Duplex Lower Extremity Veins, Bilateral Exam date and time: 05/25/2021 7:05 PM Age: 35 years old Clinical indication: Condition or disease; Other: Known pe TECHNIQUE: Imaging protocol: Real-time duplex ultrasound of the extremities with 2-D leyva scale, color Doppler flow and spectral waveform analysis with image documentation. Complete exam focused on the bilateral lower extremity veins. COMPARISON: No relevant prior studies available. FINDINGS: Right deep veins: Normal-appearing compressibility, flow and augmentation response are seen within the right common femoral, femoral, and popliteal veins. There is no evidence of deep venous thrombosis. Right superficial veins: Saphenofemoral junction is patent without thrombus. Left deep veins: Normal-appearing compressibility, flow and augmentation response are seen within the left common femoral, femoral, and popliteal veins. There is no evidence of deep venous thrombosis. Left superficial veins: Saphenofemoral junction is patent without thrombus. Soft tissues: No acute findings. IMPRESSION: 1. No evidence of deep venous thrombosis in either leg. 2. See above for remaining findings.
[2021-05-25] MEDS ORDERED: Sodium Chloride 0.9% 10 ML Syringe FLUSH SCH (21:00)
[2021-05-25] MEDS ORDERED: Sodium Chloride 0.9% 10 ML Syringe FLUSH PRN (21:04)
[2021-05-26] MEDS ORDERED: Heparin Sodium 5,000 Units/ML Vial IVPUSH ONE (00:12)
[2021-05-26] MEDS: Temazepam 15 MG Cap PO PRN ×2 (00:31→23:33)
[2021-05-26 06:44] LABS: ANION GAP 12.8 mEq/L (7-13); CHLORIDE,CL 102 mmol/L (98-107); SODIUM,NA 137 mmol/L (136-145)
[2021-05-26] MEDS ORDERED: LYSINE PO SCH (09:00)
[2021-05-26] MEDS ORDERED: GLUT PO SCH (09:00)
[2021-05-26] MEDS ORDERED: [UNRECOGNIZED DRUG - OTHER] PO SCH (09:00)
[2021-05-26] MEDS ORDERED: MV MIN PO SCH (09:00)
[2021-05-26] MEDS ORDERED: VIT C PO SCH (09:00)
--- NOTE | 2021-05-26 09:28 | PCM.PN ---
- General Info Date of Service: 05/26/21 Functional Status: Reports: Pain Controlled, Tolerating Diet - Review of Systems General: Denies: Fever, Weakness Pulmonary: Reports: Pleuritic Chest Pain. Denies: Shortness of Breath Cardiovascular: Denies: Edema Gastrointestinal: Denies: Abdominal Pain Genitourinary: Denies: Dysuria Psychiatric: Denies: Confusion - Patient Data Vitals - Most Recent: Last Vital Signs Temp 99.0 F 05/26/21 08:00 Pulse 65 05/26/21 08:00 Resp 18 05/26/21 08:00 BP 120/76 05/26/21 08:00 Pulse Ox 95 05/26/21 08:00 Weight - Most Recent: 215 lb 3.2 oz I&O - Last 24 Hours: Intake & Output 05/25/21 05/26/21 05/26/21 22:59 06:59 14:59 Intake Total 1100 604 Output Total 700 Balance 1100 -96 Lab Results Last 24 Hours: Laboratory Results - last 24 hr 05/25/21 05/25/21 05/25/21 Range/Units 16:16 16:16 23:30 WBC 7.3 (5.0-10.0) 10^3/uL RBC 4.70 (4.6-6.2) 10^6/uL Hgb 14.5 (14.0-18.0) g/dL Hct 44.5 (40.0-54.0) % MCV 94.7 (80-100) fL MCH 30.9 (27.0-34.0) pg MCHC 32.6 L (33.0-35.0) g/dL Plt Count 414 D (150-450) 10^3/uL Neut % (Auto) 66.9 (42.2-75.2) % Lymph % (Auto) 20.7 (20.5-50.1) % Rock % (Auto) 10.6 H (2-8) % Eos % (Auto) 1.2 (1.0-3.0) % Baso % (Auto) 0.6 (0.0-1.0) % Add Manual Diff Yes Neutrophils % (Manual) 60 (42-75) % Band Neutrophils % 10 % Lymphocytes % (Manual) 21 (20-50) % Monocytes % (Manual) 7 (2-8) % Eosinophils % (Manual) 1 (1-3) % Basophils % (Manual) 1 Polychromasia PT 10.0 (9.0-12.0) SEC INR 1.0 (0.9-1.2) APTT 22.1 26.5 (22.0-34.0) SEC Sodium (136-145) mmol/L Potassium (3.5-5.1) mmol/L Chloride (98-107) mmol/L Carbon Dioxide (21-32) mmol/L Anion Gap (7-13) mEq/L BUN (7-18) mg/dL Creatinine (0.70-1.30) mg/dL Est Cr Clr Drug Dosing mL/min Estimated GFR (MDRD) Glucose (70-99) mg/dL Calcium (8.5-10.1) mg/dL Phosphorus (2.6-4.7) mg/dL Magnesium (1.8-2.4) mg/dL 05/26/21 05/26/21 Range/Units 05:48 05:48 WBC 9.7 (5.0-10.0) 10^3/uL RBC 4.30 L (4.6-6.2) 10^6/uL Hgb 13.2 L (14.0-18.0) g/dL Hct 40.9 (40.0-54.0) % MCV 95.1 (80-100) fL MCH 30.7 (27.0-34.0) pg MCHC 32.3 L (33.0-35.0) g/dL Plt Count 422 (150-450) 10^3/uL Neut % (Auto) 61.3 (42.2-75.2) % Lymph % (Auto) 26.5 (20.5-50.1) % Rock % (Auto) 11.0 H (2-8) % Eos % (Auto) 0.9 L (1.0-3.0) % Baso % (Auto) 0.3 (0.0-1.0) % Add Manual Diff Yes Neutrophils % (Manual) 66 (42-75) % Band Neutrophils % 2 % Lymphocytes % (Manual) 23 (20-50) % Monocytes % (Manual) 8 (2-8) % Eosinophils % (Manual) 1 (1-3) % Basophils % (Manual) Polychromasia PT (9.0-12.0) SEC INR (0.9-1.2) APTT (22.0-34.0) SEC Sodium 137 (136-145) mmol/L Potassium 4.8 (3.5-5.1) mmol/L Chloride 102 (98-107) mmol/L Carbon Dioxide 27 (21-32) mmol/L Anion Gap 12.8 (7-13) mEq/L BUN 10 (7-18) mg/dL Creatinine 1.10 (0.70-1.30) mg/dL Est Cr Clr Drug Dosing 104.84 mL/min Estimated GFR (MDRD) > 60 Glucose 111 H (70-99) mg/dL Calcium 8.3 L (8.5-10.1) mg/dL Phosphorus 3.8 (2.6-4.7) mg/dL Magnesium 2.5 H (1.8-2.4) mg/dL Med Orders - Current: Current Medications Acetaminophen (Acetaminophen 325 Mg Tab) 650 mg PO Q4H PRN PRN Reason: Pain (Mild 1-3)/fever Levofloxacin (Levofloxacin 500 Mg Tab) 500 mg PO Q24H JEAN-PIERRE Last Admin: 05/25/21 17:47 Dose: 500 mg Documented by: Morphine Sulfate (Morphine 2 Mg/Ml Syringe) 2 mg IVPUSH Q2H PRN PRN Reason: Pain (severe 7-10) Ondansetron HCl (Ondansetron 4 Mg/2 Ml Sdv) 4 mg IVPUSH Q4H PRN PRN Reason: Nausea/Vomiting Ondansetron HCl (Ondansetron 4 Mg Tab.Dis) 4 mg PO Q4H PRN PRN Reason: nausea, able to take PO Oxycodone HCl (Oxycodone 5 Mg Tab) 5 mg PO Q4H PRN PRN Reason: Pain (moderate 4-6) Sodium Chloride (Sodium Chloride 0.9% 10 Ml Syringe) 10 ml FLUSH ASDIRECTED PRN PRN Reason: Keep Vein Open Temazepam (Temazepam 15 Mg Cap) 15 mg PO BEDTIME PRN PRN Reason: Sleep Last Admin: 05/26/21 00:31 Dose: 15 mg Documented by: Discontinued Medications Heparin Sodium (Porcine) (Heparin Sodium 5,000 Units/Ml Vial) 5,000 units IVPUSH ONETIME ONE Stop: 05/25/21 17:18 Last Admin: 05/25/21 17:48 Dose: 5,000 units Documented by: Heparin Sodium (Porcine) (Heparin Sodium 5,000 Units/Ml Vial) 2,500 units IVPUSH .BOLUS ONE Stop: 05/26/21 00:13 Last Admin: 05/26/21 00:28 Dose: 2,500 units Documented by: Heparin Sodium/Sodium Chloride (Heparin 25,000 Units In 1/2 Ns 500 Ml) 25,000 units in 500 mls @ 26 mls/hr IV TITRATE JEAN-PIERRE; Protocol Last Titration: 05/26/21 00:30 Dose: 1,685 units/hr, 33.7 mls/hr Documented by: Iopamidol (Iopamidol 755 Mg/Ml 100 Ml Bottle) 100 ml IVPUSH ONETIME ONE Stop: 05/25/21 15:19 Last Admin: 05/25/21 15:29 Dose: 80 ml Documented by: Non-Formulary Medication (Mv-Min/Vit C/Glut/Lysine/Hc124 [Airborne Tablet Chewable]) 1 each PO DAILY JEAN-PIERRE - Exam General: Alert, Oriented Neck: Supple Lungs: Clear to Auscultation, Normal Respiratory Effort Cardiovascular: Regular Rate, Regular Rhythm GI/Abdominal Exam: Normal Bowel Sounds, Soft, Non-Tender (Male) Exam: No Hernia, Normal Inspection Extremities: No Pedal Edema Skin: Warm, Dry Neurological: No New Focal Deficit Psy/Mental Status: Alert, Normal Affect, Normal Mood - Patient Data Lab Results Last 24 hrs: Laboratory Results - last 24 hr 05/25/21 05/25/21 05/25/21 Range/Units 16:16 16:16 23:30 WBC 7.3 (5.0-10.0) 10^3/uL RBC 4.70 (4.6-6.2) 10^6/uL Hgb 14.5 (14.0-18.0) g/dL Hct 44.5 (40.0-54.0) % MCV 94.7 (80-100) fL MCH 30.9 (27.0-34.0) pg MCHC 32.6 L (33.0-35.0) g/dL Plt Count 414 D (150-450) 10^3/uL Neut % (Auto) 66.9 (42.2-75.2) % Lymph % (Auto) 20.7 (20.5-50.1) % Rock % (Auto) 10.6 H (2-8) % Eos % (Auto) 1.2 (1.0-3.0) % Baso % (Auto) 0.6 (0.0-1.0) % Add Manual Diff Yes Neutrophils % (Manual) 60 (42-75) % Band Neutrophils % 10 % Lymphocytes % (Manual) 21 (20-50) % Monocytes % (Manual) 7 (2-8) % Eosinophils % (Manual) 1 (1-3) % Basophils % (Manual) 1 Polychromasia PT 10.0 (9.0-12.0) SEC INR 1.0 (0.9-1.2) APTT 22.1 26.5 (22.0-34.0) SEC Sodium (136-145) mmol/L Potassium (3.5-5.1) mmol/L Chloride (98-107) mmol/L Carbon Dioxide (21-32) mmol/L Anion Gap (7-13) mEq/L BUN (7-18) mg/dL Creatinine (0.70-1.30) mg/dL Est Cr Clr Drug Dosing mL/min Estimated GFR (MDRD) Glucose (70-99) mg/dL Calcium (8.5-10.1) mg/dL Phosphorus (2.6-4.7) mg/dL Magnesium (1.8-2.4) mg/dL 05/26/21 05/26/21 Range/Units 05:48 05:48 WBC 9.7 (5.0-10.0) 10^3/uL RBC 4.30 L (4.6-6.2) 10^6/uL Hgb 13.2 L (14.0-18.0) g/dL Hct 40.9 (40.0-54.0) % MCV 95.1 (80-100) fL MCH 30.7 (27.0-34.0) pg MCHC 32.3 L (33.0-35.0) g/dL Plt Count 422 (150-450) 10^3/uL Neut % (Auto) 61.3 (42.2-75.2) % Lymph % (Auto) 26.5 (20.5-50.1) % Rock % (Auto) 11.0 H (2-8) % Eos % (Auto) 0.9 L (1.0-3.0) % Baso % (Auto) 0.3 (0.0-1.0) % Add Manual Diff Yes Neutrophils % (Manual) 66 (42-75) % Band Neutrophils % 2 % Lymphocytes % (Manual) 23 (20-50) % Monocytes % (Manual) 8 (2-8) % Eosinophils % (Manual) 1 (1-3) % Basophils % (Manual) Polychromasia PT (9.0-12.0) SEC INR (0.9-1.2) APTT (22.0-34.0) SEC Sodium 137 (136-145) mmol/L Potassium 4.8 (3.5-5.1) mmol/L Chloride 102 (98-107) mmol/L Carbon Dioxide 27 (21-32) mmol/L Anion Gap 12.8 (7-13) mEq/L BUN 10 (7-18) mg/dL Creatinine 1.10 (0.70-1.30) mg/dL Est Cr Clr Drug Dosing 104.84 mL/min Estimated GFR (MDRD) > 60 Glucose 111 H (70-99) mg/dL Calcium 8.3 L (8.5-10.1) mg/dL Phosphorus 3.8 (2.6-4.7) mg/dL Magnesium 2.5 H (1.8-2.4) mg/dL Result Diagrams: 05/26/21 05:48 05/26/21 05:48 Sepsis Event Note - Evaluation Sepsis Screening Result: No Definite Risk - Focused Exam Vital Signs: Vital Signs Temp Pulse Resp BP Pulse Ox 05/26/21 08:00 99.0 F 65 18 120/76 95 05/26/21 05:30 98 F 70 20 112/68 93 L 05/25/21 23:13 98.9 F 81 20 129/81 96 - Problem List & Annotations (1) Pneumonia due to COVID-19 virus SNOMED Code(s): 497654797723865292 Code(s): U07.1 - COVID-19; J12.82 - PNEUMONIA DUE TO CORONAVIRUS DISEASE 2019 Status: Acute Current Visit: Yes (2) Pulmonary embolism SNOMED Code(s): 68771680 Code(s): I26.99 - OTHER PULMONARY EMBOLISM WITHOUT ACUTE COR PULMONALE Status: Acute Current Visit: Yes (3) Pulmonary embolism associated with COVID-19 SNOMED Code(s): 640496364 Code(s): U07.1 - COVID-19; I26.99 - OTHER PULMONARY EMBOLISM WITHOUT ACUTE COR PULMONALE Status: Acute Current Visit: Yes - Problem List Review Problem List Initiated/Reviewed/Updated: Yes - My Orders Last 24 Hours: My Active Orders 05/25/21 17:23 Oxygen Therapy [RC] PRN Up With Assistance [RC] ASDIRECTED VTE/DVT Education [RC] Vital Signs [RC] 00,04,08,12,16,20 Acetaminophen [TylenoL] 650 mg PO Q4H PRN Morphine 2 mg IVPUSH Q2H PRN Ondansetron [Zofran ODT] 4 mg PO Q4H PRN Ondansetron [Zofran] 4 mg IVPUSH Q4H PRN Temazepam [Restoril] 15 mg PO BEDTIME PRN oxyCODONE 5 mg PO Q4H PRN Anticoagulation Contraindications VTE [AST] Per Unit Routine Peripheral IV Insertion Adult [OM.PC] Routine Saline Lock Insert [OM.PC] Routine Resuscitation Status Routine 05/25/21 17:25 Peripheral IV Care [RC] 00,04,08,12,16,20 05/25/21 17:30 levoFLOXacin [Levaquin] 500 mg PO Q24H 05/25/21 21:04 Sodium Chloride 0.9% [Saline Flush] 10 ml FLUSH ASDIRECTED PRN 05/26/21 05:48 INR,PT,PROTHROMBIN TIME [COAG] AM PTT,PARTIAL THROMBOPLSTIN TIME [COAG] Q6H 05/26/21 09:30 Apixaban [Eliquis] 10 mg PO BID 05/26/21 11:30 PTT,PARTIAL THROMBOPLSTIN TIME [COAG] Q6H 05/26/21 17:30 PTT,PARTIAL THROMBOPLSTIN TIME [COAG] Q6H 05/26/21 23:30 PTT,PARTIAL THROMBOPLSTIN TIME [COAG] Q6H - Plan Plan:: 35 yo presented with persistent sob and new onset on r. sided chast pain 3 weeks following covid 19 pneumonia covid 19 pneumonia off isolation significant lung parenchyma changes will give dexamethasone PO follow for hypoxemic respiratory failure supplement oxygen as needed acute PE as complication of covid 19 infection started wght based heparin nomogram no apparent bleeding will transition to apixaban stop heparin drip
[2021-05-26] MEDS: Apixaban 5 MG Tab PO SCH ×2 (10:17→21:51)
[2021-05-26] MEDS: Levofloxacin 500 MG Tab PO SCH (17:25)
[2021-05-27] MEDS: Apixaban 5 MG Tab PO SCH (09:16)
--- NOTE | 2021-05-27 11:18 | PCM.DCSUM1 ---
Discharge Summary - Hospital Course Free Text/Narrative:: 35 yo presented with persistent sob and new onset on r. sided chest pain 3 weeks following covid 19 pneumonia covid 19 pneumonia off isolation significant lung parenchyma changes follow up as out pt had no hypoxemic respiratory failure acute PE as complication of covid 19 infection started wght based heparin nomogram no apparent bleeding Transitioned to apixaban will follow up with new PMD Diagnosis: Stroke: No - Discharge Data Discharge Date: 05/27/21 Discharge Disposition: Home, Self-Care 01 Condition: Good - Referral to Home Health Primary Care Physician: PCP None - Discharge Diagnosis/Problem(s) (1) Pneumonia due to COVID-19 virus SNOMED Code(s): [id number] ICD Code: U07.1 - COVID-19; J12.82 - PNEUMONIA DUE TO CORONAVIRUS DISEASE 2018 Status: Acute Current Visit: Yes (2) Pulmonary embolism SNOMED Code(s): 66916660 ICD Code: I26.99 - OTHER PULMONARY EMBOLISM WITHOUT ACUTE COR PULMONALE Status: Acute Current Visit: Yes (3) Pulmonary embolism associated with COVID-19 SNOMED Code(s): 383664294 ICD Code: U07.1 - COVID-19; I26.99 - OTHER PULMONARY EMBOLISM WITHOUT ACUTE COR PULMONALE Status: Acute Current Visit: Yes - Patient Instructions Diet: Regular Diet as Tolerated Activity: As Tolerated - Discharge Plan Prescriptions/Med Rec: Apixaban [Eliquis] 10 mg PO BID #60 tablet Home Medications: Home Meds Mv-Min/Vit C/Glut/Lysine/Hc124 [Airborne Tablet Chewable] 1 each PO DAILY 05/25/21 [History] Apixaban [Eliquis] 10 mg PO BID #60 tablet 05/27/21 [Rx] Oxygen Therapy Mode: Room Air Patient Handouts: Pulmonary Embolism, Apixaban oral tablets, Community-Acquired Pneumonia, Adult, [facility] Referrals: Ru Cantu NP [Nurse Practitioner] - - Discharge Summary/Plan Comment DC Time >30 min.: No Total # of Minutes for Discharge Time: 20 min - General Info Date of Service: 05/27/21 Admission Dx/Problem (Free Text: Admission Diagnosis/Problem Admission Diagnosis/Problem Pulmonary embolism Functional Status: Reports: Pain Controlled, Tolerating Diet, Ambulating - Review of Systems General: Denies: Fever Pulmonary: Denies: Shortness of Breath Cardiovascular: Denies: Chest Pain Gastrointestinal: Denies: Abdominal Pain Neurological: Denies: Confusion - Patient Data Vitals - Most Recent: Last Vital Signs Temp 97.8 F 05/27/21 08:14 Pulse 86 05/27/21 08:14 Resp 20 05/27/21 08:14 BP 111/61 05/27/21 08:14 Pulse Ox 95 05/27/21 08:14 Weight - Most Recent: 212 lb 12.8 oz I&O - Last 24 hours: Intake & Output 05/26/21 05/27/21 05/27/21 22:59 06:59 14:59 Intake Total 1000 200 Balance 1000 200 Med Orders - Current: Current Medications Acetaminophen (Acetaminophen 325 Mg Tab) 650 mg PO Q4H PRN PRN Reason: Pain (Mild 1-3)/fever Apixaban (Apixaban 5 Mg Tab) 10 mg PO BID [facility] Last Admin: 05/27/21 09:16 Dose: 10 mg Documented by: Levofloxacin (Levofloxacin 500 Mg Tab) 500 mg PO Q24H [facility] Last Admin: 05/26/21 17:25 Dose: 500 mg Documented by: Morphine Sulfate (Morphine 2 Mg/Ml Syringe) 2 mg IVPUSH Q2H PRN PRN Reason: Pain (severe 7-10) Ondansetron HCl (Ondansetron 4 Mg/2 Ml Sdv) 4 mg IVPUSH Q4H PRN PRN Reason: Nausea/Vomiting Ondansetron HCl (Ondansetron 4 Mg Tab.Dis) 4 mg PO Q4H PRN PRN Reason: nausea, able to take PO Oxycodone HCl (Oxycodone 5 Mg Tab) 5 mg PO Q4H PRN PRN Reason: Pain (moderate 4-6) Sodium Chloride (Sodium Chloride 0.9% 10 Ml Syringe) 10 ml FLUSH ASDIRECTED PRN PRN Reason: Keep Vein Open Last Admin: 05/26/21 21:53 Dose: 10 ml Documented by: Temazepam (Temazepam 15 Mg Cap) 15 mg PO BEDTIME PRN PRN Reason: Sleep Last Admin: 05/26/21 23:33 Dose: 15 mg Documented by: Discontinued Medications Heparin Sodium (Porcine) (Heparin Sodium 5,000 Units/Ml Vial) 5,000 units IVPUSH ONETIME ONE Stop: 05/25/21 17:18 Last Admin: 05/25/21 17:48 Dose: 5,000 units Documented by: Heparin Sodium (Porcine) (Heparin Sodium 5,000 Units/Ml Vial) 2,500 units IVPUSH .BOLUS ONE Stop: 05/26/21 00:13 Last Admin: 05/26/21 00:28 Dose: 2,500 units Documented by: Heparin Sodium/Sodium Chloride (Heparin 25,000 Units In 1/2 Ns 500 Ml) 25,000 units in 500 mls @ 26 mls/hr IV TITRATE JEAN-PIERRE; Protocol Last Titration: 05/26/21 00:30 Dose: 1,685 units/hr, 33.7 mls/hr Documented by: Iopamidol (Iopamidol 755 Mg/Ml 100 Ml Bottle) 100 ml IVPUSH ONETIME ONE Stop: 05/25/21 15:19 Last Admin: 05/25/21 15:29 Dose: 80 ml Documented by: Non-Formulary Medication (Mv-Min/Vit C/Glut/Lysine/Hc124 [Airborne Tablet Chewable]) 1 each PO DAILY JEAN-PIERRE - Exam Quality Assessment: Denies: Supplemental Oxygen General: Reports: Alert, Oriented Neck: Reports: Supple Lungs: Reports: Clear to Auscultation, Normal Respiratory Effort Cardiovascular: Reports: Regular Rate, Regular Rhythm GI/Abdominal Exam: Normal Bowel Sounds, Soft, Non-Tender Extremities: No Pedal Edema *Q Meaningful Use (DIS) - VTE *Q VTE Anticoagulation Contraindications: Alternative [place] Request PT
== END 2021-05-27 12:30 | disposition home or self-care (01) | DRG 137 ==
LOC: DL.ED 14:44 → DL.MS 16:16 → DL.ED 16:18
PROVIDERS: ADMIT Internal Medicine; ATTEND Internal Medicine
DX: U07.1 COVID-19 (principal); I26.99 Other pulmonary embolism without acute cor pulmonale; J12.82 Pneumonia due to coronavirus disease 2019; Z88.0 Allergy status to penicillin; Z88.1 Allergy status to other antibiotic agents; Z86.718 Personal history of other venous thrombosis and embolism
CPT/HCPCS: 36415; 71260; 80048; 83735; 84100; 85025; 85610; 85730; 93970; 99221; 99232; A9270-GY; J1644; Q9967

== ENCOUNTER 2021-10-22 18:48 | Emergency (ER) | payer BC ==
[2021-10-22] MEDS ORDERED: Lidocaine 1% with EPINEPHrine 1:100,000 20 ML MDV INJECT ONE (20:18)
[2021-10-22] MEDS ORDERED: Lidocaine 1% 30 ML SDV INJECT ONE (20:18)
== END 2021-10-22 21:00 | disposition home or self-care (01) ==
LOC: DL.ED 18:48
DX: S71.111A Laceration without foreign body, right thigh, initial encounter (principal); Z88.0 Allergy status to penicillin; Z88.1 Allergy status to other antibiotic agents; Z79.01 Long term (current) use of anticoagulants; Z86.16 Personal history of COVID-19; W27.0XXA Contact with workbench tool, initial encounter
CPT/HCPCS: 12002; 99282-25; 99283